=== PATIENT | male | born 1945 | race Caucasian/White ===

== ENCOUNTER → 2019-12-27 | Day surgery (SDC) | payer MEDICARE, OTHER ==
[~2019-12-27] MED LIST: Lactated Ringers 1,000 ML IV SCH; Propofol 200 MG/20 ML SDV IV ONE
[2019-12-27] MEDS: Lactated Ringers 1,000 ML IV SCH (08:20)
[2019-12-27 10:39] VITALS: BP 136/66; PULSE 46
--- NOTE | 2019-12-27 15:15 | OR ---
DATE OF OPERATION: 12/27/2019 PREOPERATIVE DIAGNOSIS: HISTORY OF POLYPS. POSTOPERATIVE DIAGNOSIS: HISTORY OF POLYPS. SURGEON: Caleb Olguin MD PROCEDURE: FULL-LENGTH COLONOSCOPY WITH FORCEPS POLYP REMOVAL X5. ANESTHESIA: MAC. COMPLICATIONS: None. SPECIMEN: Five separate small tubular adenomas, see report. FINDINGS: 1. Full-length colonoscopy. 2. Mild sigmoid diverticulosis. 3. Sessile polyps x5, all less than 0.5 cm. RECOMMENDATIONS: Followup colonoscopy in 5 years. INDICATIONS: The patient has a prior history of polyps removed on multiple colonoscopies. He is in for a routine 5-year followup. DESCRIPTION OF PROCEDURE: The patient was prepped and draped, placed in the left lateral decubitus position. A lubricated Olympus colonoscope was inserted and easily advanced to the cecum. Direct visualization of the ileocecal valve and appendiceal orifice was accomplished. The bowel prep was adequate. Upon withdrawal of the scope, the cecum, ascending and transverse colon were benign. At the splenic flexure, the patient had a small flat sessile polyp, less than 0.5 cm, removed in its entirety without any problem. There was a 2nd small sessile polyp near this one also removed with a forceps biopsy x2. In the proximal sigmoid colon, the patient had a 3rd small sessile polyp removed with cold forceps biopsy x1. The patient does have scattered diverticula in the sigmoid area, mild in severity. At the rectosigmoid junction, there were 2 small sessile polyps as well, removed with forceps biopsies x1 without difficulty. Last polyp was in the rectal vault, appeared to be hyperplastic, removed with 2 forceps biopsies in its entirety. The rest of the vault appeared benign. Retroflexion showed no perianal lesions. Air was then suctioned and the scope was removed without complication. TJEINDER/JOCELYN /[id number] CC: Roe Dobbs [address] [id number]
== END ==
LOC: CC.SDS 07:58
PROVIDERS: ATTEND Family Medicine
DX: Z12.11 Encounter for screening for malignant neoplasm of colon (principal); D12.3 Benign neoplasm of transverse colon; D12.5 Benign neoplasm of sigmoid colon; K62.1 Rectal polyp; K63.5 Polyp of colon; K57.30 Diverticulosis of large intestine without perforation or abscess without bleeding; I10 Essential (primary) hypertension; E78.5 Hyperlipidemia, unspecified; N40.1 Benign prostatic hyperplasia with lower urinary tract symptoms; R35.1 Nocturia; E66.9 Obesity, unspecified; Z88.8 Allergy status to other drugs, medicaments and biological substances; Z86.010 Personal history of colon polyps; Z68.30 Body mass index [BMI] 30.0-30.9, adult
CPT/HCPCS: 00812; 45380; J2704; J7120

== ENCOUNTER 2024-07-13 11:30 | Emergency (ER) | payer MEDICARE, OTHER ==
[2024-07-13] MEDS ORDERED: Sodium Chloride 0.9% 1,000 ML ONE (11:39)
[2024-07-13] MEDS ORDERED: HYDROmorphone 1 MG/ML Syringe ONE (11:39)
[2024-07-13] MEDS: HYDROmorphone 0.5 MG/0.5 ML Syringe IVPUSH ONE ×3 (11:40→12:35)
[2024-07-13] MEDS: Sodium Chloride 0.9% 1,000 ML IV SCH (11:40)
[2024-07-13 11:52] LABS: BASOPHILS ABSOLUTE AUTO 0.04 10^3/uL (0.00-0.50); BASOPHILS PERCENT AUTO 0.2 % (0-1); EOSINOPHILS PERCENT AUTO 0.6 % (0-6); HEMATOCRIT 36.4 % (42.0-52.0); HEMOGLOBIN 12.4 g/dL (14.0-18.0); IMMATURE GRAN ABSOLUTE AUTO 0.22 10^3/uL (0.00-0.49); IMMATURE GRAN PERCENT AUTO 1.3 % (0.0-4.9); LYMPHOCYTES ABSOLUTE AUTO 1.94 10^3/uL (0.60-5.00); LYMPHOCYTES PERCENT AUTO 11.8 % (24-44); MEAN CORPUSCULAR HEMOGLOBIN 32.3 pg (27.0-32.0); MEAN CORPUSCULAR HGB CONC 34.1 g/dL (32.0-36.0); MEAN CORPUSCULAR VOLUME 94.8 fL (83.0-97.0); MONOCYTES ABSOLUTE AUTO 1.29 10^3/uL (0.00-1.50); MONOCYTES PERCENT AUTO 7.9 % (0-10); NEUTROPHILS ABSOLUTE AUTO 12.81 x10^3/uL (1.80-8.00); NEUTROPHILS PERCENT AUTO 78.2 % (41-71); PLATELET COUNT,PLT 287 10^3/uL (150-400); RED BLOOD CELL COUNT 3.84 x10^6/uL (4.50-6.00); WHITE BLOOD CELL COUNT,WBC 16.4 10^3/uL (4.0-11.0)
[2024-07-13 12:11] LABS: CARBON DIOXIDE,CO2 25 mmol/L (21-32); CHLORIDE,CL 101 mEq/L (98-106); POTASSIUM,K 3.2 mEq/L (3.5-5.0); SODIUM,NA 138 mEq/L (136-145)
[2024-07-13 12:12] LABS: ALANINE AMINOTRANSFERASE,ALT 41 U/L (12-78); ALBUMIN 3.3 g/dL (3.4-5.0); ALKALINE PHOSPHATASE 78 U/L (46-116); ASPARTATE AMNIOTRANSFERASE,AST 77 U/L (15-37); BILIRUBIN TOTAL 0.7 mg/dL (0.0-1.0); BLOOD UREA NITROGEN,BUN 14 mg/dL (7-18); C-REACTIVE PROTEIN 0.54 mg/dL (<=0.50); CREATININE 1.4 mg/dL (0.7-1.3); ESTIMATED GFR 51 mL/min (>=60); GLUCOSE RANDOM 165 mg/dL (75-99); PROTEIN TOTAL,TP 6.2 g/dL (6.4-8.2)
[2024-07-13 12:16] LABS: INR 1.12 (0.92-1.18); PROTHROMBIN TIME 11.7 SEC (9.3-11.3)
[2024-07-13 12:19] LABS: CREATINE KINASE,CK 1803 U/L (35-232)
[2024-07-13] MEDS: ceFAZolin 2 GM Vial IVPUSH ONE (12:37)
[2024-07-13] MEDS: Diphtheria,Pertussis(Acell),Tetanus Vaccine 0.5 ML Syringe IM ONE (12:38)
[2024-07-13] MEDS: Iopamidol 755 Mg/ML 100 ML Bottle IVPUSH ONE (12:45)
[2024-07-13 13:20] LABS: APPEARANCE,URINE CLEAR (CLEAR); BILIRUBIN,URINE NEGATIVE (NEGATIVE); COLOR,URINE YELLOW (YELLOW); GLUCOSE,URINE NEGATIVE (NEGATIVE); KETONES,URINE NEGATIVE (NEGATIVE); LEUKOCYTE ESTERASE,URINE NEGATIVE (NEGATIVE); NITRITE,URINE NEGATIVE (NEGATIVE); OCCULT BLOOD,URINE MODERATE (NEGATIVE); PH,URINE 6.5 (4.5-8.0); PROTEIN,URINE 30 mg/dL (NEGATIVE); UROBILINOGEN,URINE 0.2 EU/dL (0.2-1.0)
[2024-07-13 13:25] LABS: RBC,URINE 0-5 /HPF (0-5); SQUAMOUS EPITHELIAL CELLS,UR NOT SEEN /HPF (NOT SEEN); WBC,URINE 0-5 /HPF (0-5)
[2024-07-13 13:26] LABS: BACTERIA,URINE NOT SEEN /HPF (NOT SEEN)
[2024-07-13 14:41] VITALS: BP 157/80; PULSE 87
== END 2024-07-13 13:20 ==
LOC: CC.ED 11:30
DX: S01.01XA Laceration without foreign body of scalp, initial encounter (principal); S31.139A Puncture wound of abdominal wall without foreign body, unspecified quadrant without penetration into peritoneal cavity, initial encounter; I10 Essential (primary) hypertension; Z79.899 Other long term (current) drug therapy; Z88.6 Allergy status to analgesic agent; Z88.5 Allergy status to narcotic agent; Z88.8 Allergy status to other drugs, medicaments and biological substances; Z23 Encounter for immunization; W30.9XXA Contact with unspecified agricultural machinery, initial encounter; Y92.79 Other farm location as the place of occurrence of the external cause
CPT/HCPCS: 36415; 70450; 71045; 71260; 72125; 72170; 74177; 80053; 81001; 82550; 84484; 85025; 85610; 86140; 90471; 90715; 93005; 96361; 96374; 96375; 96376; 99285-25; J0690; J1170; J7030; Q9967

== ENCOUNTER 2025-10-03 11:05 | Day surgery (SDC) | payer OTHER ==
[2025-10-03] MEDS: Lactated Ringers 1,000 ML IV SCH (11:46)
[2025-10-03] MEDS ORDERED: Propofol 200 MG/20 ML SDV ONE ×2 (12:12)
[2025-10-03] MEDS ORDERED: fentaNYL 50 MCG/ML SDV ONE (12:12)
[2025-10-03] MEDS ORDERED: Ketamine 200 MG/20 ML MDV ONE (12:12)
[2025-10-03 13:43] VITALS: BP 129/69; PULSE 69
== END 2025-10-03 13:44 | disposition home or self-care (01) ==
LOC: CC.SDS 11:05
PROVIDERS: ATTEND Family Medicine
DX: Z12.11 Encounter for screening for malignant neoplasm of colon (principal); D12.3 Benign neoplasm of transverse colon; D12.4 Benign neoplasm of descending colon; K63.5 Polyp of colon; K62.1 Rectal polyp; K57.30 Diverticulosis of large intestine without perforation or abscess without bleeding; I10 Essential (primary) hypertension; E78.5 Hyperlipidemia, unspecified; Z79.899 Other long term (current) drug therapy; Z86.0100 Personal history of colon polyps, unspecified
CPT/HCPCS: 00811; 88305; 99100; J2704; J3010; J3490; J7120